=== PATIENT | female | born 1975 | race Caucasian/White ===

== ENCOUNTER 2016-12-08 08:00 | Outpatient (RCR) ==
[2016-10-12 06:37] VITALS: BMI 28.1
--- NOTE | 2016-11-24 09:36 | RS.OPPTDN ---
Subjective Date of Note: 11/24/16 Visit #: 4 Date of Evaluation: 11/12/16 Treatment Diagnosis: Neck pain Current Subjective/complaints:: Patient reports having injections Sat. @ pain management center in [place], [place].She presents with guarded posture ,c/o elevated pain. Pain Assessment - Pain Description Pain Location: cervical pain and left shoulder region (upper trap) Pain Description: Tightness, Aching, Chronic Pain Description: Constant discomfort Current Pain Intensity: 8-9/10 - Treatment Modality: Electrical Stim Unattended Parameters/Method Applied: 20 mins. high volt,channel 1 @ 55 pv,channel 2 @ 85 pv. Patient Position: Sitting - Heat/Cryotherapy Treatment: Hot Pack (concurrent with e-stim) - Traction Treatment Method: Mechanical, Intermittent, Cervical Patient Position: Supine Amount of Force Applied: 13# Hold Time: 30 secs. Rest Time: 5 secs. Duration of treatment: 20 mins. Traction Treatment Comment: Tolerates well. Interventions - Exercise/Activities/Manual Therapy Exercises/Activities: Reviewed HEP of cervical ROM and postural pullbacks, scapular ROM. Total minutes of Exercise: 5 Manual Therapy: NA Total minutes of Manual Therapy: 0 HOME EXERCISE PROGRAM: Chin tucks,cervical ROM,scapular ROM and postural pullbacks. - Charges Total Direct Minutes: 5 Total Treatment Time: 45 Procedures billed for this date of service:: hp,e-stim,traction Assessment: Patient has less guarded motion after modalities today.She has improved cervical rotation also.She is attentive to recommendations for HEP and pain control. Patient Education: Education of diagnosis, Body/Joint mechanics, Home Exercise Program, Home Safety, Activity Modification, Education of Plan of Care Patient demonstrates compliance with HEP?: Yes Short Term Goals Goal #1: Intermittent cervical discomfort. Goal to be met by: 12/04/16 Progress towards Goal:: No Change Goal #2: Patient able to sleep 25% better. Goal to be met by: 12/04/16 Progress towards Goal:: Regressing Goal #3: Patient independent in beginning HEP Goal to be met by: 12/04/16 Progress towards Goal:: Progressing Goal #4: Left hand tingling eliminated. Goal to be met by: 12/04/16 Progress towards Goal:: Progressing Half-Way Goals Goal #1: Sleep is unaffected by her neck pain. Goal to be met by: 12/25/16 Goal #2: CROM WFLs w/o increased pain. Goal to be met by: 12/25/16 Goal #3: Cervical strength 4+ - 5/5 for stability Goal to be met by: 12/25/16 Goal #4: Performs daily tasks with min neck discomfort. Goal to be met by: 12/25/16 Plan PLAN OF CARE EXPIRES ON:: 12/25/16 ORDER # VISITS AND/OR THROUGH DATE: 12/25/2016 PLAN: Continue Plan of Care
--- NOTE | 2016-11-26 09:05 | RS.OPPTDN ---
Subjective Date of Note: 11/26/16 Visit #: 5 Date of Evaluation: 11/12/16 Treatment Diagnosis: Neck pain Current Subjective/complaints:: Reports neck pain and stiffness this morning.She request an abbbreviated treatment due to having an appt. in [place], [place]. and the winter weather forecast today. Pain Assessment - Pain Description Pain Location: cervical pain and left shoulder region (upper trap) Pain Description: Tightness, Aching, Chronic Pain Description: Constant discomfort Current Pain Intensity: 8-9/10 - Treatment Modality: Electrical Stim Unattended Parameters/Method Applied: 20 mins. high volt,channel 1 @ 70 pv. and channel 2 @ 80pv. 20 mins. high volt,to cervcal /upper traps.,channel 1 @ 70 pv,channel2 @ 80 pv. Patient Position: Sitting - Heat/Cryotherapy Treatment: Hot Pack (concurrent with e-stim.) Interventions - Exercise/Activities/Manual Therapy Exercises/Activities: Reviewed HEP of cervical ROM and postural pullbacks, scapular ROM. Total minutes of Exercise: 0 Manual Therapy: NA Total minutes of Manual Therapy: 0 HOME EXERCISE PROGRAM: Chin tucks,cervical ROM,scapular ROM and postural pullbacks. - Charges Total Direct Minutes: 0 Total Treatment Time: 20 mins. Procedures billed for this date of service:: hp,e-stim Assessment: Patient's pain level varies,dependent upon amount of daily activity.Her pain is localized in the neck,not radiating into the UE's today.She is attentive to recommendations for HEP. Patient Education: Education of diagnosis, Body/Joint mechanics, Home Exercise Program, Home Safety, Activity Modification, Education of Plan of Care Patient demonstrates compliance with HEP?: Yes Short Term Goals Goal #1: Intermittent cervical discomfort. Goal to be met by: 12/04/16 Progress towards Goal:: No Change Goal #2: Patient able to sleep 25% better. Goal to be met by: 12/04/16 Progress towards Goal:: Regressing Goal #3: Patient independent in beginning HEP Goal to be met by: 12/04/16 Progress towards Goal:: Progressing Goal #4: Left hand tingling eliminated. Goal to be met by: 12/04/16 Progress towards Goal:: Partially Met Snf Goals Goal #1: Sleep is unaffected by her neck pain. Goal to be met by: 12/25/16 Goal #2: CROM WFLs w/o increased pain. Goal to be met by: 12/25/16 Progress towards goal: Progressing Goal #3: Cervical strength 4+ - 5/5 for stability Goal to be met by: 12/25/16 Goal #4: Performs daily tasks with min neck discomfort. Goal to be met by: 12/25/16 Plan PLAN OF CARE EXPIRES ON:: 12/25/16 ORDER # VISITS AND/OR THROUGH DATE: 12/25/2016 PLAN: Progress Exercises
--- NOTE | 2016-11-30 12:12 | RS.OPPTDN ---
Subjective Date of Note: 11/30/16 Visit #: 6 Date of Evaluation: 11/12/16 Treatment Diagnosis: Neck pain Current Subjective/complaints:: Reports hurting today between her shoulder blades more than her neck. Pain Assessment - Pain Description Pain Location: cervical pain and left shoulder region (upper trap) Pain Description: Tightness, Aching, Chronic Pain Description: Constant discomfort Current Pain Intensity: 6-7/10 - Heat/Cryotherapy Treatment: Hot Pack (20 mins. prior to exercise and traction) - Traction Treatment Method: Mechanical, Intermittent, Cervical Patient Position: Supine Amount of Force Applied: 14# Hold Time: 30 secs. Rest Time: 5 secs. Duration of treatment: 15 mins. Interventions - Exercise/Activities/Manual Therapy Exercises/Activities: Patient given yellow t-band and return demo of postural pullbacks at different heights.Reviewed HEP of cervical ROM. Total minutes of Exercise: 10 Manual Therapy: NA Total minutes of Manual Therapy: 0 HOME EXERCISE PROGRAM: Chin tucks,cervical ROM,scapular ROM and postural pullbacks. - Charges Total Direct Minutes: 10 Total Treatment Time: 45 Procedures billed for this date of service:: hp,ex,traction Assessment: Patient gives good return demo of theraband exercises today.Reminded her to focus on sitting posture,presents with forward head and rounded shoulders today. Patient Education: Education of diagnosis, Body/Joint mechanics, Home Exercise Program, Home Safety, Activity Modification, Education of Plan of Care Patient demonstrates compliance with HEP?: Yes Short Term Goals Goal #1: Intermittent cervical discomfort. Goal to be met by: 12/04/16 Progress towards Goal:: Progressing Goal #2: Patient able to sleep 25% better. Goal to be met by: 12/04/16 Progress towards Goal:: Progressing Goal #3: Patient independent in beginning HEP Goal to be met by: 12/04/16 Progress towards Goal:: Partially Met Goal #4: Left hand tingling eliminated. Goal to be met by: 12/04/16 Progress towards Goal:: Partially Met Agent Goals Goal #1: Sleep is unaffected by her neck pain. Goal to be met by: 12/25/16 Progress towards goal: Progressing Goal #2: CROM WFLs w/o increased pain. Goal to be met by: 12/25/16 Progress towards goal: Progressing Goal #3: Cervical strength 4+ - 5/5 for stability Goal to be met by: 12/25/16 Progress towards goal: No Change Goal #4: Performs daily tasks with min neck discomfort. Goal to be met by: 12/25/16 Plan PLAN OF CARE EXPIRES ON:: 12/25/16 ORDER # VISITS AND/OR THROUGH DATE: 12/25/2016 PLAN: Continue Plan of Care
--- NOTE | 2016-12-04 10:20 | RS.OPPTDN ---
Subjective Date of Note: 12/04/16 Visit #: 7 Date of Evaluation: 11/12/16 Treatment Diagnosis: Neck pain Current Subjective/complaints:: Reports most of her pain today is between her shoulder blades. Pain Assessment - Pain Description Pain Location: cervical pain and left shoulder region (upper trap) Pain Description: Tightness, Dull, Aching, Chronic Current Pain Intensity: 6-7/10 - Treatment Modality: Electrical Stim Unattended Parameters/Method Applied: 20 mins. high volt to cervical /UT area,channel 1 @ 95 pv,channel 2 @ 95 pv. - Heat/Cryotherapy Treatment: Hot Pack (concurrent with e-stim) Interventions - Exercise/Activities/Manual Therapy Exercises/Activities: 20 mins.total,including occipital release,lateral flexion , manual distraction to cervical spine. Total minutes of Exercise: 20 Manual Therapy: NA Total minutes of Manual Therapy: 0 HOME EXERCISE PROGRAM: Chin tucks,cervical ROM,scapular ROM and postural pullbacks. - Charges Total Direct Minutes: 20 Total Treatment Time: 40 Procedures billed for this date of service:: hp,e-stim,ex 1 Assessment: Patient reports her relief is mostly temporary,but the duration varies ,dependent upon amount od daily activity.She is tender to palpate between her scapulae. Patient Education: Body/Joint mechanics Short Term Goals Goal #1: Intermittent cervical discomfort. Goal to be met by: 12/04/16 Progress towards Goal:: Partially Met Goal #2: Patient able to sleep 25% better. Goal to be met by: 12/04/16 Progress towards Goal:: Progressing Goal #3: Patient independent in beginning HEP Goal to be met by: 12/04/16 Progress towards Goal:: Partially Met Goal #4: Left hand tingling eliminated. Goal to be met by: 12/04/16 Progress towards Goal:: Met Snf Goals Goal #1: Sleep is unaffected by her neck pain. Goal to be met by: 12/25/16 Progress towards goal: Progressing Goal #2: CROM WFLs w/o increased pain. Goal to be met by: 12/25/16 Progress towards goal: Progressing Goal #3: Cervical strength 4+ - 5/5 for stability Goal to be met by: 12/25/16 Progress towards goal: No Change Goal #4: Performs daily tasks with min neck discomfort. Goal to be met by: 12/25/16 (varies(sees assessment)) Plan PLAN OF CARE EXPIRES ON:: 12/25/16 ORDER # VISITS AND/OR THROUGH DATE: 12/25/2016 PLAN: Continue Plan of Care
--- NOTE | 2016-12-08 08:34 | RS.QUICKDC ---
Discharge from PT Date of Discharge: 12/08/16 Number of Visits: 8 Reason for Discharge: Patient reports remporary relief after 8 sessions.She understands HEP as tolerated and is aware of D/C plan today.
== END 2016-12-22 ==
PROVIDERS: ATTEND Orthopaedic Surgery Orthopaedic Surgery of the Spine
DX: M54.2 Cervicalgia (principal)

== ENCOUNTER 2017-04-18 16:34 | Emergency (ER) | payer OTHER ==
[2017-04-18 16:40] VITALS: TEMP 97.6; BMI 29.6
[2017-04-18] MEDS ORDERED: MORPHINE 10 MG/ML SYRINGE IM STA (16:41)
--- NOTE | 2017-04-18 16:45 | ED.PDOC ---
General ED Provider: Dr. HELENA ROLLINS Chief Complaint: Headache Stated Complaint: headache Time Seen by Physician: 17:00 (headache no change in the pain distribution ) Mode of Arrival: Walk-In Information Source: Patient Exam Limitations: No limitations Primary Care Provider: MING MCGARRY Referred to ED by: Other Nursing and Triage Documentation Reviewed and Agree: Yes (nita at beside at all times small dog jumped on her abdomen has some pain) Neurological Complaint Exam - Headache Complaint/Exam Onset: Gradual Duration: 1 day Symptoms Are: Still present Timing: Constant Episodes Lasting: Hours Worst Headache Ever: No Initial Severity: Moderate Current Severity: Moderate Location: Diffuse Character: Reports: Dull, Throbbing Aggravating: Reports: None Alleviating: Reports: None Associated Signs and Symptoms: Denies: Dizziness, Seizure, Nausea, Vomiting, Sinus pressure, Fever, Neck pain, Neck stiffness, Decreased LOC, Visual changes Related History: Reports: Similar episode Related Surgical History: Reports: None SAH Risk Factors: Reports: None Meningitis Risk Factors: Reports: None SDH Risk Factors: Reports: None Temporal Arteritis Risk Factors: Reports: Female, Normal Head CT Within Last 12 Months: Yes Papilledema Present: No Temporal Artery Tenderness: Present: None Sinus Tenderness: Present: None TMJ Tenderness: Present: None Review of Systems - Review Of Systems Constitutional: Reports: No symptoms Eyes: Reports: No symptoms Ears, Nose, Mouth, Throat: Reports: No symptoms Respiratory: Reports: No symptoms Cardiac: Reports: No symptoms GI: Reports: Abdominal pain (after a chihuahua jumped on her abdomen her pet dog, post site of hystorectomy in good repair) : Reports: No symptoms Musculoskeletal: Reports: No symptoms Skin: Reports: No symptoms Neurological: Reports: No symptoms Endocrine: Reports: No symptoms Hematologic/Lymphatic: Reports: No symptoms All Other Systems: Reviewed and Negative Past Medical History - Past Medical History Previously Healthy: Yes Endocrine: Reports: None Cardiovascular: Reports: None Respiratory: Reports: None Hematological: Reports: None Gastrointestinal: Reports: None Genitourinary: Reports: None Neuro/Psych: Reports: None, Anxiety, Depression Musculoskeletal: Reports: None Cancer: Reports: None Last Menstrual Period: na - Surgical History General Surgical History: Reports: Tubal ligation (2011) - Family History Family History: Reports: None - Social History Smoking Status: Current every day smoker Hx Substance Use: No Alcohol Screening: None - Immunizations Tetanus Shot up to Date: No Physical Exam - Physical Exam Appearance: Well-appearing, No pain distress, Well-nourished Eyes: KADE, EOMI, Conjunctiva clear ENT: Ears normal, Nose normal, Oropharynx normal Respiratory: Airway patent, Breath sounds clear, Breath sounds equal, Respirations nonlabored Cardiovascular: RRR, Pulses normal, No rub, No murmur GI/: Soft, Nontender, No masses, Bowel sounds normal, No Organomegaly Musculoskeletal: Normal strength, ROM intact, No edema, No calf tenderness Skin: Warm, Dry, Normal color Neurological: Sensation intact, Motor intact, Reflexes intact, Cranial nerves intact, Alert, Oriented Psychiatric: Affect appropriate, Mood appropriate Critical Care Note - Critical Care Note Total Time (mins): 0 Course - Course Orders, Labs, Meds: Orders Category Date Time Status Morphine Sulfate [Morphine 10 mg/ml Syringe] MEDS 04/18/17 16:41 Stat 4 mg IM ONCE STA Medications Discontinued Medications Generic Name Dose Route Start Last Admin Trade Name Osorio PRN Reason Stop Dose Admin Morphine Sulfate 4 mg 04/18/17 16:41 Morphine 10 Mg/Ml Syringe IM 04/18/17 16:42 ONCE STA Vital Signs: Temp Pulse Resp BP Pulse Ox 04/18/17 16:35 97.6 F 70 20 150/94 H 96 Departure - Departure Time of Disposition: 16:47 (seen with nurse at all times ) Disposition: HOME SELF-CARE Discharge Problem: Headache Instructions: Migraine Headache (ED) Condition: Good Pt referred to PMD for follow-up: No Additional Instructions: Please call your Family Physician as soon as possible to schedule a follow-up appointment. Allergies/Adverse Reactions: Allergies No Known Allergies Allergy (Verified 09/19/16 19:39) Home Medications: Ambulatory Orders Hydrocodone/Acetaminophen [[place] 5-325 Tablet] 1 each PO TID PRN #90 tab-cap 09/05 Amoxicillin [Amoxil] 500 mg PO TID #30 capsule 09/19/16 Ibuprofen [Motrin] 600 mg PO Q6H PRN #30 tablet 09/19/16 Multivitamin 1 cap PO DAILY 09/19/16
[2017-04-18] MEDS ORDERED: MORPHINE 4 MG/ML SYRINGE ONE (16:53)
[2017-04-18 17:16] VITALS: BP 124/87
== END 2017-04-18 17:26 | disposition home or self-care (01) ==
LOC: ED 16:34
DX: R51 Headache (principal); R10.9 Unspecified abdominal pain; W54.1XXA Struck by dog, initial encounter; Z90.710 Acquired absence of both cervix and uterus; F17.200 Nicotine dependence, unspecified, uncomplicated
CPT/HCPCS: 96372; 99283

== ENCOUNTER 2017-08-18 08:02 | Inpatient (IN) ==
[2017-08-18] MEDS ORDERED: DUONEB NEB STA (08:10)
[2017-08-18] MEDS ORDERED: DECADRON 4 MG/ML SDV IM STA ×2 (08:10→08:14)
[2017-08-18 08:31] LABS: BASOPHILS # (AUTO) 0.1 K/uL (0-0.2); BASOPHILS % (AUTO) 0.6 % (0.0-3.0); EOSINOPHILS # (AUTO) 0.4 K/ul (0.0-0.7); IMMATURE GRANULOCYTE % (AUTO) 0.4 % (0.0-5.0); LYMPHOCYTES # (AUTO) 1.4 K/uL (0.60-3.4); LYMPHOCYTES % (AUTO) 10.7 (10.0-50.0); MEAN CORPUSCULAR HEMOGLOBIN 32.3 pg (27.0-31.0); MEAN CORPUSCULAR HGB CONC 34.9 (31.8-35.4); MEAN CORPUSCULAR VOLUME 92.5 fl (81.0-99.0); MONOCYTES # (AUTO) 0.9 K/uL (0.4-2.0); MONOCYTES % (AUTO) 7.3 (0-10); NEUTROPHILS # (AUTO) 9.8 K/ul (2.0-6.9); PLATELET COUNT 259 10^3/uL (140-440); RED BLOOD COUNT 4.65 10^6/ul (4.20-5.40); WHITE BLOOD COUNT 12.59 K/ul (4.6-10.2)
[2017-08-18 08:34] LABS: ABG BASE EXCESS 0 (-2.0-2.0); ABG HCO3 23.4 (22.0-26.0); ABG PH 7.486 (7.35-7.45); ABG TCO2 24 (22.0-28.0)
[2017-08-18 08:49] LABS: ALBUMIN 3.8 g/dL (3.4-5.0); ALBUMIN/GLOBULIN RATIO 1.15; ANION GAP 13.8; BILIRUBIN,TOTAL 0.44 mg/dL (0.00-1.20); BUN/CREATININE RATIO 7.31; CALCIUM 9.5 mg/dL (8.2-10.2); CREATININE 0.82 mg/dL (0.60-1.30); POTASSIUM 3.8 mmol/L (3.5-5.10); TOTAL PROTEIN 7.1 g/dL (6.4-8.2)
--- NOTE | 2017-08-18 09:36 | DI ---
Exam: Two x-rays of the chest. Comparison: 07/23/2014. CT chest performed 10/13/2016. Reason for exam: Cough. FINDINGS: No pneumothorax, pleural effusion, or focal consolidation. The cardiac silhouette is not enlarged. The imaged osseous structures appear grossly unremarkable without acute fracture. Impression: No acute cardiopulmonary process.
--- NOTE | 2017-08-18 09:38 | ED.PDOC ---
General ED Provider: Dr. HELENA ROLLINS Chief Complaint: Respiratory Complaint Stated Complaint: COUGH, WHEEZ Time Seen by Physician: 08:00 (COUGH, WHEEZ SEEN PT WITH IVAN AND PMD PRESENT ) Mode of Arrival: Walk-In Information Source: Patient Exam Limitations: No limitations (PMD ALSO SAW PT ALONG SIDE MYSELF) Primary Care Provider: SADIE CHAMBERS Referred to ED by: Other (SMOKES 1 PK/DAY STOPPED 2 DAYS AGO) Nursing and Triage Documentation Reviewed and Agree: Yes (NURSE PRESENT AT ALL TIMES DURING INTERACTION WITH PT ALONG WITH PMD) Respiratory Complaint Exam - Respiratory Complaint/Exam Symptoms Are: Still present Timing: Intermittent Initial Severity: Moderate Current Severity: Moderate (WHEZZING) Character: Reports: Non-productive cough Aggravating: Reports: None Alleviating: Reports: Bronchodilators, Upright position, Steriods Associated Signs and Symptoms: Reports: URI. Denies: Rapid breathing, Dyspnea, Fever, Chills, Chest pain, Pleuritic chest pain, Wheezing, Hemoptysis, Dizziness , Calf pain, Calf swelling, Edema, Nasal congestion, Hoarseness, Sinus discomfort, Vomiting, Sore throat, Weight loss, Decreased oral intake, Increased thirst, Increased appetite, Increased urination Related History: Reports: Similar episode (DURING FALL TIME) History of Healthcare-Acquired Pneumonia: No Related Surgical History: Reports: None Pulmonary Embolism Risk Factors: Smoking Pseudomonas Risk Factors: Reports: None Tuberculosis Risk Factors: Reports: None Status Asthmaticus Risk Factors: Reports: None Home Oxygen Use: No Recent Stress Test: No Recent Echo/LV Function: No Current Antibiotic Use: No Current Asthma Medication Use: No Respiratory Distress: None Inadequate Respiratory Effort: No Dysphagia Present: No Stridor Present: No JVD Present: No Retractions: Not Present Diminished Breath Sounds: Yes Sinus Tenderness: None Grunting Respirations: No Kussmaul Respirations: No Differential Diagnoses: COPD Exacerbation, Pneumonia, Bronchitis, URI, Lower Resp. Infection Review of Systems - Review Of Systems Constitutional: Reports: Malaise, Weakness Eyes: Reports: No symptoms Ears, Nose, Mouth, Throat: Reports: No symptoms Respiratory: Reports: Cough, Wheezing Cardiac: Reports: No symptoms GI: Reports: No symptoms : Reports: No symptoms Musculoskeletal: Reports: No symptoms Skin: Reports: No symptoms Neurological: Reports: No symptoms Endocrine: Reports: No symptoms Hematologic/Lymphatic: Reports: No symptoms All Other Systems: Reviewed and Negative Past Medical History - Past Medical History Previously Healthy: Yes Endocrine: Reports: None Cardiovascular: Reports: None Respiratory: Reports: None Hematological: Reports: None Gastrointestinal: Reports: None Genitourinary: Reports: None Neuro/Psych: Reports: None, Anxiety, Depression Musculoskeletal: Reports: None Cancer: Reports: None Last Menstrual Period: n./a - Surgical History General Surgical History: Reports: Tubal ligation (2011) - Family History Family History: Reports: None - Social History Smoking Status: Current every day smoker Hx Substance Use: No Alcohol Screening: None Physical Exam - Physical Exam Appearance: Well-appearing, No pain distress, Well-nourished Eyes: KADE, EOMI, Conjunctiva clear ENT: Ears normal, Nose normal, Oropharynx normal Respiratory: Wheezes (THROUGH OUT DIMINISED BREATH SOUNDS ) Cardiovascular: RRR, Pulses normal, No rub, No murmur GI/: Soft, Nontender, No masses, Bowel sounds normal, No Organomegaly Musculoskeletal: Normal strength, ROM intact, No edema, No calf tenderness Skin: Warm, Dry, Normal color Neurological: Sensation intact, Motor intact, Reflexes intact, Cranial nerves intact, Alert, Oriented Psychiatric: Affect appropriate, Mood appropriate Interpretation - Radiology Interpretation Radiology Interpretation By: Radiologist Physician Notification - Case Discussed Physician Notified: PMD Time of Notification: 08:00 (SAW PT IN ED AND ADVISED ADMISSION ) Admit To: Inpatient Critical Care Note - Critical Care Note Total Time (mins): 0 Course - Course Hematology/Chemistry: 08/18/17 08:23 08/18/17 08:23 Orders, Labs, Meds: Lab Review 08/18/17 08/18/17 08/18/17 08:23 08:23 08:30 WBC 12.59 H RBC 4.65 Hgb 15.0 Hct 43.0 MCV 92.5 MCH 32.3 H MCHC 34.9 RDW Coeff of Melquiades 12.5 Plt Count 259 Immature Gran % (Auto) 0.4 Neut % (Auto) 78.0 Lymph % (Auto) 10.7 [place] % (Auto) 7.3 Eos % (Auto) 3.0 Baso % (Auto) 0.6 Immature Gran # (Auto) 0.1 Neut # 9.8 H Lymph # 1.4 [place] # 0.9 Eos # 0.4 Baso # 0.1 Puncture Site R rad O2 Saturation 96.0 ABG pH 7.486 H ABG pCO2 31.0 L ABG pO2 71.0 L ABG HCO3 23.4 ABG Total CO2 24 ABG Base Excess 0 Nikita Test + FiO2 % 21.0 Sodium 138 Potassium 3.8 Chloride 105 Carbon Dioxide 23 Anion Gap 13.8 BUN 6 L Creatinine 0.82 Estimated GFR (MDRD) 76.00 BUN/Creatinine Ratio 7.31 Glucose 93 Calcium 9.5 Total Bilirubin 0.44 AST 14 L ALT 18 Alkaline Phosphatase 71 Total Protein 7.1 Albumin 3.8 Globulin 3.3 Albumin/Globulin Ratio 1.15 Orders Category Date Time Status ABG DRAW REQUEST Stat CARDIO 08/18/17 08:14 Completed NEBULIZER TREATMENT Stat CARDIO 08/18/17 08:10 Completed ABG Stat LAB 08/18/17 08:30 Completed CBC W/ AUTO DIFF Stat LAB 08/18/17 08:23 Completed COMPREHENSIVE METABOLIC PANEL Stat LAB 08/18/17 08:23 Completed Dexamethasone 4 mg/ml Inj [Decadron 4 mg/ml Sdv] MEDS 08/18/17 08:14 Discontinued 4 mg IM ONCE STA Ipratropium/Albuterol Neb [Duoneb] MEDS 08/18/17 08:10 Discontinued 1 vial NEB ONCE STA CHEST, 2 VIEWS PA & LAT Stat RADS 08/18/17 08:10 Ordered Medications Discontinued Medications Generic Name Dose Route Start Last Admin Trade Name Freq PRN Reason Stop Dose Admin Albuterol/Ipratropium 1 vial 08/18/17 08:10 08/18/17 08:27 Duoneb NEB 08/18/17 08:11 1 vial ONCE STA Administration Dexamethasone Sodium Phosphate 4 mg 08/18/17 08:14 08/18/17 08:46 Decadron 4 Mg/Ml Sdv IM 08/18/17 08:15 4 mg ONCE STA Administration Vital Signs: Temp Pulse Resp BP Pulse Ox 08/18/17 08:03 98.6 F 99 H 20 119/78 91 L Departure - Departure Time of Disposition: 09:40 Disposition: ADMITTED INPATIENT Discharge Problem: COPD (chronic obstructive pulmonary disease) Qualifiers: COPD type: unspecified COPD Qualified Code(s): J44.9 - Chronic obstructive pulmonary disease, unspecified Instructions: COPD (Chronic Obstructive Pulmonary Disease) (ED) Condition: Good Pt referred to PMD for follow-up: Yes Additional Instructions: Please call your Family Physician as soon as possible to schedule a follow-up appointment. Allergies/Adverse Reactions: Allergies No Known Allergies Allergy (Verified 08/18/17 08:06) Home Medications: Ambulatory Orders Hydrocodone/Acetaminophen [[place] 5-325 Tablet] 1 each PO TID PRN #90 tab-cap 09/05 Ibuprofen [Motrin] 600 mg PO Q6H PRN #30 tablet 09/19/16 Multivitamin 1 cap PO DAILY 09/19/16 Disposition Discussed With: Patient
[2017-08-18] MEDS ORDERED: ROCEPHIN 1 GM in SODIUM CHLORIDE 50 ML IV STA (09:48)
[2017-08-18] MEDS: ROCEPHIN ONE ×2 (10:09→10:10)
[2017-08-18] MEDS ORDERED: NON-FORMULARY MEDICATION (Sertraline Hcl [Zoloft] 100 MG) PO SCH (10:30)
[2017-08-18 10:42] VITALS: BMI 28.5
[2017-08-18] MEDS ORDERED: ZOLOFT PO SCH (11:00)
[2017-08-18] MEDS: DUONEB NEB SCH ×3 (11:23→23:54)
[2017-08-18] MEDS: SODIUM CHLORIDE 1,000 ML IV SCH (12:12)
[2017-08-18] MEDS: NICODERM 21 MG TD SCH (15:09)
[2017-08-18] MEDS ORDERED: DECADRON 4 MG/ML SDV IV SCH (16:00)
[2017-08-18] MEDS ORDERED: FLEXERIL PO PRN (17:42)
[2017-08-18] MEDS: ZOLOFT PO SCH (20:32)
[2017-08-18] MEDS: ATIVAN PO SCH (20:32)
[2017-08-18] MEDS: SOLU-MEDROL 125 MG IVP SCH (20:33)
[2017-08-19] MEDS: SODIUM CHLORIDE 1,000 ML IV SCH ×2 (00:11→13:18)
[2017-08-19 05:12] LABS: BASOPHILS % (AUTO) 0.1 % (0.0-3.0); HEMATOCRIT 40.9 % (37.0-47.0); HEMOGLOBIN 13.8 g/dl (12.0-16.0); IMMATURE GRANULOCYTE % (AUTO) 0.8 % (0.0-5.0); LYMPHOCYTES # (AUTO) 0.7 K/uL (0.60-3.4); LYMPHOCYTES % (AUTO) 4.5 (10.0-50.0); MEAN CORPUSCULAR HEMOGLOBIN 31.7 pg (27.0-31.0); MEAN CORPUSCULAR HGB CONC 33.7 (31.8-35.4); MEAN CORPUSCULAR VOLUME 93.8 fl (81.0-99.0); MONOCYTES # (AUTO) 0.2 K/uL (0.4-2.0); MONOCYTES % (AUTO) 1.5 (0-10); NEUTROPHILS # (AUTO) 14.4 K/ul (2.0-6.9); NEUTROPHILS % (AUTO) 93.1; PLATELET COUNT 258 10^3/uL (140-440); RED BLOOD COUNT 4.36 10^6/ul (4.20-5.40); WHITE BLOOD COUNT 15.46 K/ul (4.6-10.2)
[2017-08-19] MEDS: DUONEB NEB SCH ×3 (05:20→17:25)
[2017-08-19 05:46] LABS: ALBUMIN 3.5 g/dL (3.4-5.0); ALBUMIN/GLOBULIN RATIO 1.03; ANION GAP 14.4; BILIRUBIN,TOTAL 0.19 mg/dL (0.00-1.20); BUN/CREATININE RATIO 14.28; CALCIUM 9.4 mg/dL (8.2-10.2); CREATININE 0.77 mg/dL (0.60-1.30); POTASSIUM 4.4 mmol/L (3.5-5.10); TOTAL PROTEIN 6.9 g/dL (6.4-8.2)
[2017-08-19] MEDS: SOLU-MEDROL 125 MG IVP SCH ×2 (08:40→21:00)
[2017-08-19] MEDS: MUCINEX PO SCH ×2 (08:40→20:11)
[2017-08-19] MEDS: MULTIVITAMIN PO SCH (08:40)
[2017-08-19] MEDS: NICODERM 21 MG TD SCH (09:22)
[2017-08-19] MEDS: ROCEPHIN 1 GM in SODIUM CHLORIDE 50 ML IV SCH (11:56)
--- NOTE | 2017-08-19 13:18 | DI ---
EXAM: PA and lateral views of the chest HISTORY: Cough and wheezing COMPARISON: Chest x-ray 08/18/2017 and numerous priors including CT chest 10/13/2016 FINDINGS: The cardiomediastinal silhouette is normal. There is no pneumothorax or pleural effusion. There is no consolidation, nodule or mass. There is central airway thickening and minimal small air way thickening to the medial right lower lobe. The osseous structures are stable. IMPRESSION: Central and small airway thickening may represent reactive airways changes versus bronchitis bronchio litis. There is no acute consolidation.
[2017-08-19] MEDS: ATIVAN PO SCH (20:11)
[2017-08-19] MEDS: ZOLOFT PO SCH (20:12)
[2017-08-20] MEDS: DUONEB NEB SCH ×2 (01:02→06:30)
[2017-08-20 04:56] VITALS: BP 112/66; TEMP 98.4
[2017-08-20 06:31] LABS: BASOPHILS % (AUTO) 0.1 % (0.0-3.0); HEMATOCRIT 39.4 % (37.0-47.0); HEMOGLOBIN 13.4 g/dl (12.0-16.0); IMMATURE GRANULOCYTE % (AUTO) 0.8 % (0.0-5.0); LYMPHOCYTES # (AUTO) 1.1 K/uL (0.60-3.4); LYMPHOCYTES % (AUTO) 6.6 (10.0-50.0); MONOCYTES # (AUTO) 0.4 K/uL (0.4-2.0); MONOCYTES % (AUTO) 2.4 (0-10); NEUTROPHILS # (AUTO) 14.9 K/ul (2.0-6.9); NEUTROPHILS % (AUTO) 90.1; PLATELET COUNT 281 10^3/uL (140-440); RED BLOOD COUNT 4.19 10^6/ul (4.20-5.40); WHITE BLOOD COUNT 16.57 K/ul (4.6-10.2)
[2017-08-20 06:53] LABS: ALBUMIN 3.3 g/dL (3.4-5.0); ALBUMIN/GLOBULIN RATIO 1.1; CALCIUM 9.2 mg/dL (8.2-10.2); POTASSIUM 4.1 mmol/L (3.5-5.10); TOTAL PROTEIN 6.3 g/dL (6.4-8.2)
[2017-08-20 06:54] LABS: ANION GAP 13.1; BILIRUBIN,TOTAL 0.17 mg/dL (0.00-1.20); BUN/CREATININE RATIO 19.17; CREATININE 0.73 mg/dL (0.60-1.30)
[2017-08-20] MEDS: ROCEPHIN 1 GM in SODIUM CHLORIDE 50 ML IV SCH (09:13)
[2017-08-20] MEDS: SOLU-MEDROL 125 MG IVP SCH (09:15)
[2017-08-20] MEDS: MUCINEX PO SCH (09:15)
[2017-08-20] MEDS: MULTIVITAMIN PO SCH (09:15)
--- NOTE | 2017-08-26 09:41 | HP ---
DATE OF SERVICE: 08/18/17 CHIEF COMPLAINT: Cough and the shortness of breath HISTORY OF PRESENT ILLNESS: The patient came to the hospital with cough and congestion. She has been having some sinus problem, congestion and getting some sinus drainage. The patient started taking some over the counter medication which are not helping her. As wheezing and coughing getting worse the patient got scared and came to the emergency room. She was seen by Dr. Barrientos in the Emergency room. On evaluation WBC was 12.59, ABG showed the pH 7.486, pCO2 31.0, pO2 71, BUN and creatinine was normal. Chest x-ray not showing any acute findings. After the initial treatment of the steroids and the breathing treatment the patient was still having the difficulty breathing and at that time the patient being admitted to the hospital with the COPD exacerbation and bronchitis. REVIEW OF SYSTEMS: CONSTITUTIONAL: No fever, no chills. Weakness and tiredness. HEENT: Normal. Sinus drainage. Ear pain. ENDOCRINE: No weight gain; no weight loss. CVS: No chest pain. No PND, no orthopnea. No shortness of breath. No PND, no orthopnea. RESPIRATORY: Cough and congestion getting yellow/green phlegm. No hemoptysis. GI: No nausea, no vomiting. No abdominal pain. No melena. : No hematuria. No polyuria. MUSCULOSKELETAL: No joint swelling. PSYCHIATRIC: Not anxious. No depression. No suicidal thoughts. No homicidal thoughts. SKIN: Intact, no open lesions. PAST MEDICAL HISTORY: COPD History of pneumonia Osteoarthritis Depression Anxiety Continued Nicotine use DJD Spine Chronic pain medication PAST SURGICAL HISTORY: Hysterectomy Tubal ligation, 2017 PERSONAL HISTORY: The patient does smoke. No alcohol and no drugs. Family history is significant for high blood pressure. MEDICATIONS: Hydrocodone Motrin Multivitamin Cyclobenzaprine Zoloft ALLERGIES: No known allergies PHYSICAL EXAMINATION: V/S: Blood pressure 119/78, respiratory rate 20, heart rate 99, temperature 98.6 with saturation 91%. HEENT: Atraumatic, normocephalic. No scleral icterus. Mucosa dry. NECK: Supple. No JVD, no bruit. No lymphadenopathy. No thyromegaly. HEART: S1, S2 normal. No murmur. Sinus tachy. No cyanosis or clubbing. No ascites. LUNGS: Decreased and basilar crackles and defused expiratory wheezing. No rales or rhonchi. ABDOMEN: Soft, nontender. Bowel sounds are active. No CVA tenderness. No rigidity or guarding. EXTREMITIES: No cyanosis, clubbing or pedal edema. MUSCULOSKELETAL: Normal joints, no swelling. NEUROLOGIC: The patient is awake and alert. SKIN: Intact; no open lesions. Dry. LYMPHATIC: No lymph nodes palpable. LABS: WBC 12.59, hgb 15.0, hct 43.0, plt count 259, sodium 138, potassium 3.8, chloride 105, bicarb 23, BUN 6, creatinine 0.8. ASSESSMENT: 1. COPD exacerbation secondary to bronchitis 2. History of chronic pain syndrome 3. DJD spine 4. Depression 5. Nicotine use PLAN: 1. Admit patient to the regular floor 2. CBC and CMP today and daily 3. Cardiac enzymes and Troponin 4. Regular diet 5. Will start the Rocephin 1 gram daily 6. DUO NEBS Q 6 hours 7. Decadron 1mg 8. Solu-Medrol 60mg Q 12 hours 9. Continue the home medication TIME SPENT: MORE THAN 70 minutes MTDD
--- NOTE | 2017-08-26 09:46 | PN ---
DATE OF SERVICE: 08/19/17 SUBJECTIVE: The patient was admitted with COPD exacerbation and bronchitis. Coughing is still some better and still having the shortness of breath and getting yellow to clear phlegm. REVIEW OF SYSTEMS: CONSTITUTIONAL: No fever, no chills. HEENT: Normal. Lots of sinus drainage. Ear pain. ENDOCRINE: No weight gain, no weight loss. CVS: No angina symptoms. No CHF symptoms. No palpitations. No atypical chest pain for CAD. No shortness of breath. No PND, no orthopnea. RESPIRATORY: Cough and congestion, no hemoptysis. GI: No nausea, no vomiting. No abdominal pain. : No hematuria. No polyuria. MUSCULOSKELETAL:. No joint swelling. PSYCHIATRIC: Not anxious. No depression. No suicidal thoughts. No homicidal thoughts. SKIN: Intact. No rash. PHYSICAL EXAMINATION: V/S: Blood pressure 160/90, respiratory rate 20, heart rate 111, temperature 97.5 with saturation 92% on the room air. HEENT: Normocephalic, atraumatic. Mucosa dry. NECK: Supple. No JVD, no carotid bruit. No lymphadenopathy. LUNGS: Decreased with basilar crackles and mild expiratory wheezing. No rales or rhonchi. HEART: S1, S2 normal. No S3. No murmur, gallop or regurgitation. ABDOMEN: Soft, nontender. Bowel sounds active. No rigidity. No rebound or guarding. No CVA tenderness. EXTREMITIES: No clubbing, cyanosis or pedal edema. MUSCULOSKELETAL: No joint swelling. NEUROLOGIC: Awake, alert, oriented times three. No focal deficit. LYMPHATIC: No lymph nodes palpable. SKIN: Intact. LABS: Sodium 141, potassium 4.4, chloride 108, bicarb 23, BUN 11, creatinine 0.77, WBC 15.46, hgb 13.8, hct 40.9 and plt count 258. ASSESSMENT: 1. COPD exacerbation secondary to bronchitis 2. Leukocytosis most likely from the steroids 3. DJD spine 4. Chronic pain management 5. Depression 6. Continued Nicotine use PLAN: 1. Continue the Solu-Medrol 60mg Q 8 hours 2. Rocephin 1 gram daily 3. DUO NEBS 4. Daily I&O's 5. Out of bed to chair activity as tolerated as patient is active and mobile not giving any anticoagulation at this time. TIME SPENT: More than 35 minutes MTDD
--- NOTE | 2017-08-26 09:58 | DS ---
DATE OF SERVICE: 08/20/17 FINAL DIAGNOSIS: 1. COPD exacerbation secondary to the bronchitis 2. Leukocytosis secondary to the steroids 3. DJD spine 4. Osteoarthritis and pain management 5. Depression 6. Nicotine use DISCHARGE INSTRUCTIONS: Discharge the patient home. Strictly advised to quit smoking. The patient is on the nicotine patch and advised to continue it. MEDICATIONS AT DISCHARGE: [place] 5-325 PO three times a day PRN Motrin 600mg PO Q 6 hours PRN Multivitamin one capsule PO daily Cyclobenzaprine 10mg PO twice a day PRN Zoloft 100mg PO daily Atrovent hfa 12.9gram inhalation three times a day Prednisone 10mg PO twice a day Keflex 500mg PO Q 12 hours NEW PRESCRIPTIONS: Keflex 500mg twice a day for 7 more days Prednisone 10mg twice a day for 7 days Atrovent Inhaler two puffs three times a day DIET INSTRUCTIONS: Cardiac and healthy ACTIVITY: As much as tolerated. SMOKING: Smoking Cessation discussed. DISEASE SPECIFIC EDUCATION: COPD Pneumonia Risk of pneumonia Need of pneumonia vaccination been discussed with the patient in detail Pneumonia vaccination and Flu Vaccination been discussed. Antibiotics and side effects of diarrhea been discussed. HOSPITAL COURSE: Mandy Benítez came to the emergency room with cough and congestion, shortness of breath and not able to get better with the over the counter medication. The patient came to the emergency room and was evaluated by ER physician Dr. Barrientos. ABG showed the pH 7.486, pCO2 31.0, pO2 71. Initial white count was 12.5 and after that even after the two rounds of Decadron and the breathing treatment the patient was still wheezing so the patient being admitted to the hospital for the IV antibiotics, breathing treatments and steroids. The patient was started on the Rocephin 1 gram daily and DUO NEBS Q 6 hours and the Solu-Medrol 60mg Q 12 hours. The patient was put on the nicotine patch also. Gradually the patient started feeling better. Coughing and congestion is easing up. The patient was going out and smoking and strictly advised not to do that; smoking and risk of the COPD and worsening COPD been discussed again. By third day the patient was a lot better but still having cough and congestion but the shortness of breath is improved. At that time discharge plan was made as patient is active and going out. The patient is being sent home on the Keflex,steroids and the breathing treatments Ipratropium. The patient will be followed at the [facility] within 5-7 days. TIME SPENT: MORE THAN 55 MINUTES MTDD
== END 2017-08-20 10:11 | disposition home or self-care (01) | DRG 192 ==
LOC: ED 08:02 → MEDSURG A 10:01
PROVIDERS: ADMIT Emergency Medicine; ATTEND Emergency Medicine
DX: J44.1 Chronic obstructive pulmonary disease with (acute) exacerbation (principal); J20.9 Acute bronchitis, unspecified; J44.0 Chronic obstructive pulmonary disease with (acute) lower respiratory infection; D72.829 Elevated white blood cell count, unspecified; M47.9 Spondylosis, unspecified; M19.90 Unspecified osteoarthritis, unspecified site; R06.2 Wheezing; R05 Cough; F17.200 Nicotine dependence, unspecified, uncomplicated; Z79.891 Long term (current) use of opiate analgesic
CPT/HCPCS: 36415; 80053; 82803; 85025; 93005; 93010; 94640; 96365; 96372; 99284

== ENCOUNTER 2017-12-20 14:38 | Outpatient (CLI) ==
--- NOTE | 2017-12-20 14:57 | DI ---
EXAM: Three views of the left hand. History: Left hand pain. Findings: No acute fracture or dislocation. No abnormal calcifications or radiopaque foreign bodies . Mild narrowing of the first carpal metacarpal joint. Joint spaces are otherwise relatively preser philippe. Impression: 1. No acute osseous abnormality. 2. Mild arthritis of the first carpal metacarpal joint
== END 2017-12-20 14:39 | disposition home or self-care (01) ==
LOC: RAD 14:38 → LAB 14:39
PROVIDERS: ATTEND Nurse Practitioner Family
DX: F41.9 Anxiety disorder, unspecified (principal); E75.6 Lipid storage disorder, unspecified; M79.642 Pain in left hand; Z72.0 Tobacco use
CPT/HCPCS: 36415; 80053; 80061; 84439; 84443; 85025

== ENCOUNTER 2019-01-19 10:00 | Outpatient (RCR) ==
--- NOTE | 2018-12-29 08:37 | RS.OPPTEV2 ---
Date of Note: 12/28/18 Visit #: 1 Number of visits approved by Insurance: pending Date of Evaluation: 12/28/18 Payer Source: Medicaid Surgery Performed?: No Treatment Diagnosis: Low back pain History of Condition/Mechanism of Injury:: pt reports she has had long history of low back pain as well as neck pain. States her pain has been increasing since Oct 2018 due to unable to continue pain management due to not having transportation. States MD will not prescribe her pain meds. pt reports that she has had increased pain the last 3-4 yrs. Prior Level of Function.....Patient was independent with: ADL's, Self Care, Work /Vocation, Caregiving, Ambulation/Mobility, Community Integration/Access Level of Function: pt reports she is unable to perform daily activities needed for her and her kids. Functional Limitations: Sleep, Self Care, ADL's, Reaching, Pushing, Pulling, Lifting, Carrying, Sitting, Standing, Bending, Squatting, Ambulation, Community Access/Integration Current Subjective/complaints:: pt very emotional, crying during interview portion of eval. pt states "I am too young to feel this way." pt voices concerns regarding getting some pain meds to relieve some pain. Treatment Side (optional): N/A *Precautions: n/a Medical History Medical History: Arthritis Medical History Comments:: fibromyalgia Surgical History: Hysterectomy Surgical History Comments:: Tubal Smoking Status: Current every day smoker Hx Home Medications: ibuprofen Patient's Goals: decrease pain Pain Assessment - Pain Description Pain Location: low back pain radiating into R hip Pain Description: Tightness, Radiating, Sharp Current Pain Intensity: 8-10/10 Worst Pain Intensity: 10 Other Comments regarding Pain:: pt cries out in pain with all movement. Functional Outcome Measure Oswestry LBP: 40 - G Codes & Severity Modifier G Codes & Modifier: n/a Source of G Code score: n/a Observation - Observation Posture: Forward Head, Rounded Shoulders, Increased Thoracic Kyphosis, Decreased Lumbar Lordosis Handedness: Right Gait - Gait Pattern Gait Comments: pt amb with guarded flexed posture. General Range of Motion: BUE WFL's with pain with L shld ROM. BLE WFL's with pain with hip flex BLE Muscle Strength: BUE shld flex 4/5, elbow flex/ext 4+/5,. BLE hip flex 4-/5, knee flex/ext 4+/5, ankle DF/PF 4+/5 - ROM Lumbar Flexion: Hand reach to patellae Sidebending to Left: Reach to Mid-thigh Sidebending to Right: Reach to Mid-thigh Lumbar Spine ROM Limitations: Soft Tissue Tightness, Muscle Weakness, Pain Comments: pt with increased pain with lumbar ext, - Strength Trunk Extension: 3- Fair- Trunk Flexion: 3- Fair- Trunk Lateral Flexion: 3- Fair- - Special Tests MACIEJ Test: Positive Left, Positive Right SLR Test: Positive Left, Positive Right SI Joint Compression: Positive Comments: pt very tearful with evaluation, cries out with all motion. Palpation Palpation Findings: Tenderness, Trigger Point, Muscle Guarding Comments:: pt with tenderness to palpation of entire low back and trigger points Sensation - Sensation Right Upper Extremity: Intact/Normal Left Upper Extremity: Intact/Normal Right Lower Extremity: Intact/Normal Left Lower Extremity: Intact/Normal Balance - Sitting Balance Static Sitting Balance: Normal Dynamic Sitting Balance: Normal - Standing Balance Static Standing Balance: Normal Dynamic Standing Balance: Normal - Treatment Modality: Electrical Stim Unattended Parameters/Method Applied: IFC x 20 mins at 12 Treatment Area: lumbar area Patient Position: Right Sidelying - Heat/Cryotherapy Treatment: Cryotherapy Comments:: lumbar area Interventions - Exercise/Activities/Manual Therapy Exercises/Activities: pt performed pelvic tilts x 3, isometric hip add, received hamstring stretch, piriformis stretch Manual Therapy: NA HOME EXERCISE PROGRAM: pt given written HEP including pelvic tilt, pirformis, hamstring stretch, isometric hip add - Charges Timed Code Treatment Minutes: 48 Total Treatment Time: 61 Procedures billed for this date of service:: eval low, estim unattended, cold pack EVALUATION COMPLEXITY LEVEL EVALUATION COMPLEXITY LEVEL: HISTORY: Low (OA), EXAM OF BODY SYSTEMS: Medium, CLINICAL PRESENTATION: Medium, CLINICAL DECISION MAKING: Low Assessment Assessment: pt presents with low back pain radiating into R hip. pt with muscle guarding and trigger points in lumbar spine with tightness in B hamstrings and piriformis. Feel pt would benefit from skilled PT for therex for strengthening including core strengthening, stretching, as well as modalities to decrease pain. Patient Education: Home Exercise Program, Education of Plan of Care Rehab Potential: Good Short Term Goals Goal #1: pt independent with HEP Goal to be met by: 01/11/19 Goal #2: Improve hamstring and piriformis flexibility to WFL's Goal to be met by: 01/11/19 Goal #3: pt rate pain < 8/10 Goal to be met by: 01/11/19 Goal #4: Improved lumbar ROM to WFL's Goal to be met by: 01/11/19 Acoustical Installer Goals Goal #1: pt rate pain <6/10 with no radicular symptoms Goal to be met by: 01/27/19 Goal #2: pt report increased ability to perform normal daily activities Goal to be met by: 01/27/19 Goal #3: pt report able to sleep > 4 hrs uninterrupted Goal to be met by: 01/27/19 Plan - Treatment to be Provided Procedures: Therapeutic Exercises, Therapeutic Activity, Manual Therapy, Massage , Patient Education Modalities: Electrical Stimulation, Ultrasound/Phonophoresis, Class IV Laser, Cryotherapy, Hot Packs, Mechanical Traction - Treatment Plan Frequency: 2 X week Duration: 4 weeks Dates of Acoustical Installer Goals: 01/27/19 Expiration date of current Insurance Approval:: 01/27/19 - Treatment Code (1) Low back pain Code(s): M54.5 - LOW BACK PAIN Qualifiers: Chronicity: chronic Back pain laterality: unspecified Sciatica presence: with sciatica Sciatica laterality: sciatica of right side Qualified Code(s) : M54.41 - Lumbago with sciatica, right side; G89.29 - Other chronic pain (2) Muscle tightness Code(s): M62.89 - OTHER SPECIFIED DISORDERS OF MUSCLE
--- NOTE | 2019-01-04 14:41 | RS.OPPTDN ---
Subjective Date of Note: 01/04/19 Visit #: 2 Number of visits approved by Insurance: Pending Date of Evaluation: 12/28/18 Payer Source: Medicaid Treatment Diagnosis: Low back pain Current Subjective/complaints:: Patient reports back pain that limits her activity level. States she feels better following modalities and exercise. *Precautions: n/a Pain Assessment - Pain Description Pain Location: Lowback Pain Description: Aching Current Pain Intensity: mod - Treatment Modality: Electrical Stim Unattended Parameters/Method Applied: [id number] HVGC to 160p.v. with 4 large pads to the bilateral lumbar paraspinals with HP prior to EX. Patient Position: Sitting - Heat/Cryotherapy Treatment: Hot Pack (with Estim ) Interventions - Exercise/Activities/Manual Therapy Exercises/Activities: [id number] Assisted bilateral hamstring, SKTC, DKTC, piriformis, and LTR stretching. Pelvic tilts, isometric hip add, and alt hip flexion in hook-lying, all 2s/10reps. Attempted SLR, increased pain. Discussion of safe body mechanics with bed mobility and with daily activities. Total minutes of Exercise: 23mins Manual Therapy: NA HOME EXERCISE PROGRAM: pt given written HEP including pelvic tilt, pirformis, hamstring stretch, isometric hip add - Charges Timed Code Treatment Minutes: 23mins Total Treatment Time: 45mins Procedures billed for this date of service:: HP, Estim unattended, EX2 Assessment: Patient reporting good response to modalities and gentle exercise. Patient Education: Home Exercise Program Patient demonstrates compliance with HEP?: Yes Short Term Goals Goal #1: pt independent with HEP Goal to be met by: 01/11/19 Progress towards Goal:: Progressing Goal #2: Improve hamstring and piriformis flexibility to WFL's Goal to be met by: 01/11/19 Goal #3: pt rate pain < 8/10 Goal to be met by: 01/11/19 Goal #4: Improved lumbar ROM to WFL's Goal to be met by: 01/11/19 [employer] Goals Goal #1: pt rate pain <6/10 with no radicular symptoms Goal to be met by: 01/27/19 Goal #2: pt report increased ability to perform normal daily activities Goal to be met by: 01/27/19 Goal #3: pt report able to sleep > 4 hrs uninterrupted Goal to be met by: 01/27/19 Goal #4: Performs daily tasks with min neck discomfort. Goal to be met by: 12/25/16 (varies(sees assessment)) Plan Dates of Editor [employer] Goals: 01/27/19 Expiration date of current Insurance Approval:: 01/27/19 PLAN: Continue modalities and progressive exercise to reduce pain and increase functional activity level.
--- NOTE | 2019-01-10 14:28 | RS.OPPTDN ---
Subjective Date of Note: 01/10/19 Visit #: 3 Number of visits approved by Insurance: Pending Date of Evaluation: 12/28/18 Payer Source: Medicaid Treatment Diagnosis: Low back pain Current Subjective/complaints:: Reports last treatment helped decrease pain. States she has worked on HEP. States she is having increased upper trap pain and muscle tension. *Precautions: n/a Pain Assessment - Pain Description Pain Location: lowback, bilateral upper traps Pain Description: Tightness, Aching Current Pain Intensity: mod Other Comments regarding Pain:: Reports decrease in back pain with treatment and exercise. - Treatment Modality: Electrical Stim Unattended Parameters/Method Applied: [id number] HVGC to 185p.v. 4 large pads cross current to the bilateral lumbar paraspinals with HP prior to EX. Patient Position: Sitting - Heat/Cryotherapy Treatment: Hot Pack (with Estim ) Interventions - Exercise/Activities/Manual Therapy Exercises/Activities: [id number] Assisted bilateral hamstring, SKTC, DKTC, piriformis, and LTR stretching. Pelvic tilts, isometric hip add, and alt hip flexion in hook-lying, all 2s/10reps. Patient was able to perform SLR today, 10reps each. Began bridging. Discussion of safe body mechanics with bed mobility and ADL's. Total minutes of Exercise: 24mins Manual Therapy: NA HOME EXERCISE PROGRAM: pt given written HEP including pelvic tilt, pirformis, hamstring stretch, isometric hip add - Charges Timed Code Treatment Minutes: 24mins Total Treatment Time: 44mins Procedures billed for this date of service:: HP, Estim unattended, EX2 Assessment: Patient progressing with mat exercises and reporting a good response to modalities. Patient Education: Body/Joint mechanics, Home Exercise Program, Activity Modification Patient demonstrates compliance with HEP?: Yes Short Term Goals Goal #1: pt independent with HEP Goal to be met by: 01/11/19 Progress towards Goal:: Progressing Goal #2: Improve hamstring and piriformis flexibility to WFL's Goal to be met by: 01/11/19 Progress towards Goal:: Progressing Goal #3: pt rate pain < 8/10 Goal to be met by: 01/11/19 Progress towards Goal:: Progressing Goal #4: Improved lumbar ROM to WFL's Goal to be met by: 01/11/19 [employer] Goals Goal #1: pt rate pain <6/10 with no radicular symptoms Goal to be met by: 01/27/19 Goal #2: pt report increased ability to perform normal daily activities Goal to be met by: 01/27/19 Goal #3: pt report able to sleep > 4 hrs uninterrupted Goal to be met by: 01/27/19 Goal #4: Performs daily tasks with min neck discomfort. Goal to be met by: 01/27/17 (varies(sees assessment)) Progress towards goal: Regressing Plan Dates of [employer] Manager Goals: 01/27/19 Expiration date of current Insurance Approval:: 01/27/19 PLAN: Continue modalities and progress exercise to reduce pain and increase functional activity level.
--- NOTE | 2019-01-12 12:46 | RS.OPPTDN ---
Subjective Date of Note: 01/12/19 Visit #: 4 Number of visits approved by Insurance: pending Date of Evaluation: 12/28/18 Payer Source: Medicaid Treatment Diagnosis: Low back pain Current Subjective/complaints:: Reports hurting in her neck and back today.She moves slowly and guarded today due to pain. *Precautions: n/a Pain Assessment - Pain Description Pain Location: lumbar Pain Description: Dull, Aching, Chronic Current Pain Intensity: 7/10 - Treatment Modality: Electrical Stim Unattended Parameters/Method Applied: 20 mins. high volt to lumbar,channel 1 and 2 @ 130 pv. Patient Position: Supine - Heat/Cryotherapy Treatment: Hot Pack (concurrent with e-stim) Interventions - Exercise/Activities/Manual Therapy Exercises/Activities: x 30 mins Assisted bilateral hamstring, SKTC, DKTC, piriformis, and LTR stretching. Pelvic tilts, SI muscle energy techniques for leg length correction ,then instructed how to do this using wand for resistance. Total minutes of Exercise: 30 Manual Therapy: NA Total minutes of Manual Therapy: 0 HOME EXERCISE PROGRAM: pt given written HEP including pelvic tilt, pirformis, hamstring stretch, isometric hip add - Charges Timed Code Treatment Minutes: 30 Total Treatment Time: 50 Procedures billed for this date of service:: hp,estim,ex 2 Assessment: Patient muscle guards and facial grimacing with muscle energy techniques and during exercises today,moves slowly for supine to sit to stand.She has moderate R hamstring tightness,less tight in the L hamstrings. Patient Education: Education of diagnosis, Body/Joint mechanics, Home Exercise Program, Home Safety, Activity Modification, Education of Plan of Care Patient demonstrates compliance with HEP?: Yes Short Term Goals Goal #1: pt independent with HEP Goal to be met by: 01/11/19 Progress towards Goal:: Progressing Goal #2: Improve hamstring and piriformis flexibility to WFL's Goal to be met by: 01/11/19 Progress towards Goal:: Progressing Goal #3: pt rate pain < 8/10 Goal to be met by: 01/11/19 Progress towards Goal:: Progressing Goal #4: Improved lumbar ROM to WFL's Goal to be met by: 01/11/19 Residential Goals Goal #1: pt rate pain <6/10 with no radicular symptoms Goal to be met by: 01/27/19 Goal #2: pt report increased ability to perform normal daily activities Goal to be met by: 01/27/19 Goal #3: pt report able to sleep > 4 hrs uninterrupted Goal to be met by: 01/27/19 Goal to be met by: 01/27/17 Plan Dates of Motor Patrol Operator Goals: 01/27/19 Expiration date of current Insurance Approval:: pending PLAN: Cont. skilled PT to reduce/eliminate LBP.
--- NOTE | 2019-01-17 16:29 | RS.OPPTDN ---
Subjective Date of Note: 01/17/19 Visit #: 5 Number of visits approved by Insurance: NA Date of Evaluation: 12/28/18 Payer Source: Medicaid Treatment Diagnosis: Low back pain Current Subjective/complaints:: Patient reports she has been hurting "all over" the last few days. Reports mod to high back pain but feeling much better after treatment and exercise. *Precautions: n/a Pain Assessment - Pain Description Pain Location: lowback Worst Pain Intensity: 8/10 - Treatment Modality: Electrical Stim Unattended Parameters/Method Applied: [id number] HVGC to 140p.v. with 4 large pads to the bilateral lumbar paraspinals with HP. Patient Position: Supine - Heat/Cryotherapy Treatment: Hot Pack (with Estim ) Interventions - Exercise/Activities/Manual Therapy Exercises/Activities: [id number] Assisted bilateral hamstring, SKTC, DKTC, piriformis, and LTR stretching. Pelvic tilts, modified bridging. Muscle energy techniques of alternating isometric hip extension and isometric flexion. Total minutes of Exercise: 23mins Manual Therapy: NA HOME EXERCISE PROGRAM: pt given written HEP including pelvic tilt, pirformis, hamstring stretch, isometric hip add - Charges Timed Code Treatment Minutes: 23mins Total Treatment Time: 43mins Procedures billed for this date of service:: HP, EStim unattended, EX2 Assessment: Patient with reports of increased pain, but progresses with exercise. Patient Education: Home Exercise Program Patient demonstrates compliance with HEP?: Yes Short Term Goals Goal #1: pt independent with HEP Goal to be met by: 01/11/19 Progress towards Goal:: Partially Met Goal #2: Improve hamstring and piriformis flexibility to WFL's Goal to be met by: 01/11/19 Progress towards Goal:: Progressing Goal #3: pt rate pain < 8/10 Goal to be met by: 01/11/19 Progress towards Goal:: Not Met Goal #4: Improved lumbar ROM to WFL's Goal to be met by: 01/11/19 Long-Term Goals Goal #1: pt rate pain <6/10 with no radicular symptoms Goal to be met by: 01/27/19 Goal #2: pt report increased ability to perform normal daily activities Goal to be met by: 01/27/19 Goal #3: pt report able to sleep > 4 hrs uninterrupted Goal to be met by: 01/27/19 Goal to be met by: 01/27/17 Plan Dates of [employer] Goals: 01/27/19 Expiration date of current Insurance Approval:: 01/27/19 PLAN: Continue this week and reaasess progress, benefits of treatment, and need to continue.
--- NOTE | 2019-01-19 15:54 | RS.OPPTDN ---
Subjective Date of Note: 01/19/19 Visit #: 6 Number of visits approved by Insurance: Pending Date of Evaluation: 12/28/18 Payer Source: Medicaid Treatment Diagnosis: Low back pain Current Subjective/complaints:: Reports back pain continues with little to no change overall. Agrees to contact physician to schedule follow-up as she does not have one at present. *Precautions: n/a Pain Assessment - Pain Description Pain Location: lowback Current Pain Intensity: 8/10 - Treatment Modality: Electrical Stim Unattended Parameters/Method Applied: [id number] HVGC to 145p.v. with 4 large pads cross current to the lumbar paraspinals with HP prior to EX. Patient Position: Supine - Heat/Cryotherapy Treatment: Hot Pack (with Estim ) Interventions - Exercise/Activities/Manual Therapy Exercises/Activities: [id number] Assisted bilateral hamstring, SKTC, DKTC, piriformis, and LTR stretching. Pelvic tilts, modified bridging. Muscle energy techniques of alternating isometric hip extension and isometric flexion. Blue theraband for resisted hip abduction in hook-lying. SLR. Total minutes of Exercise: 24mins Manual Therapy: NA HOME EXERCISE PROGRAM: pt given written HEP including pelvic tilt, pirformis, hamstring stretch, isometric hip add - Charges Timed Code Treatment Minutes: 24mins Total Treatment Time: 48mins Procedures billed for this date of service:: HP, Estim unattended, EX2 Assessment: Patient reporting continued pain and decrease in functional activity level with little to no improvement. Patient will need to follow-up with physician. Patient Education: Body/Joint mechanics, Home Exercise Program, Activity Modification, Education of Plan of Care Comments: Patient edcuation of dx, body mechanics, safety, and HEP finalized. Patient demonstrates compliance with HEP?: Yes Short Term Goals Goal #1: pt independent with HEP Goal to be met by: 01/11/19 Progress towards Goal:: Met Goal #2: Improve hamstring and piriformis flexibility to WFL's Goal to be met by: 01/11/19 Progress towards Goal:: Progressing Goal #3: pt rate pain < 8/10 Goal to be met by: 01/11/19 Progress towards Goal:: Not Met Comments:: Consistently rates pain at 8/10 last few days. Goal #4: Improved lumbar ROM to WFL's Goal to be met by: 01/11/19 Progress towards Goal:: Not Met Nursing Home Goals Goal #1: pt rate pain <6/10 with no radicular symptoms Goal to be met by: 01/27/19 Progress towards goal: Not Met Goal #2: pt report increased ability to perform normal daily activities Goal to be met by: 01/27/19 Progress towards goal: No Change Goal #3: pt report able to sleep > 4 hrs uninterrupted Goal to be met by: 01/27/19 Progress towards goal: No Change Goal to be met by: 01/27/17 Plan Dates of Nursing Home Goals: 01/27/19 Expiration date of current Insurance Approval:: 01/27/19 PLAN: Discharge with HEP due to lack of consistent progress.
--- NOTE | 2019-01-19 15:57 | RS.QUICKDC ---
Discharge from PT Date of Discharge: 01/19/19 Number of Visits: 6 Reason for Discharge: Patient attended 6 session and reports some improvement in LBP following modalities and assisted stretching. She reported no improvement overall and only met one treatment goal for HEP. Patient will need to follow-up with physician. Discharge with HEP due to lack of consistent progress.
== END 2019-01-19 23:59 ==
PROVIDERS: ATTEND Family Medicine
DX: M54.5 Low back pain (principal); S46.812A Strain of other muscles, fascia and tendons at shoulder and upper arm level, left arm, initial encounter; M54.41 Lumbago with sciatica, right side; G89.29 Other chronic pain; M62.89 Other specified disorders of muscle